=== PATIENT | male | born 1975 | race Asian ===

== ENCOUNTER 2021-11-21 08:42 | Emergency (ER) | payer BC ==
[2021-11-21] MEDS ORDERED: Sodium Chloride 0.9% 1,000 ML IV ONE (09:23)
[2021-11-21] MEDS ORDERED: metroNIDAZOLE/Normal Saline 500 MG in Premix Bag 1 BAG IV STA (09:42)
[2021-11-21] MEDS ORDERED: Ciprofloxacin in D5W 400 MG in Premix Bag 1 BAG IV STA ×2 (09:42)
[2021-11-21 10:09] LABS: CARBON DIOXIDE,CO2 24.3 mmol/L (21.0-32.0)
[2021-11-21] MEDS ORDERED: Iopamidol 755 MG/ML 500 ML Multipack Bottle IVPUSH STA (10:50)
[2021-11-21] MEDS ORDERED: Potassium Chloride 10% 20 MEQ/15 ML Soln 30 ML UD Cup PO ONE (11:18)
== END 2021-11-21 13:23 | disposition home or self-care (01) ==
LOC: MW.ED 08:42
DX: K52.9 Noninfective gastroenteritis and colitis, unspecified (principal); Z79.899 Other long term (current) drug therapy; Z90.49 Acquired absence of other specified parts of digestive tract; Z20.822 Contact with and (suspected) exposure to COVID-19
CPT/HCPCS: 36415; 74177; 80053; 83690; 83735; 85025; 87045; 87046; 87328; 87329; 87449; 87635; 87899; 96365; 96367; 99284; A9270; J0744; J3490; J7030; Q9967; U0002

== ENCOUNTER 2022-02-09 11:44 | Emergency (ER) | payer BC ==
[2022-02-09] MEDS ORDERED: Sodium Chloride 0.9% 2.5 ML Syringe FLUSH PRN (12:16)
[2022-02-09] MEDS ORDERED: Sodium Chloride 0.9% 10 ML Syringe FLUSH PRN (12:16)
[2022-02-09] MEDS ORDERED: Sodium Chloride 0.9% 1,000 ML IV ONE ×2 (12:16→13:14)
[2022-02-09 13:06] LABS: CARBON DIOXIDE,CO2 25.3 mmol/L (21.0-32.0); POTASSIUM,K 4.2 mmol/L (3.5-5.1)
[2022-02-09 13:11] LABS: CORONAVIRUS COVID-19 NAA NEGATIVE (NEGATIVE); INFLUENZA A NAA NEGATIVE (NEGATIVE); INFLUENZA B NAA NEGATIVE (NEGATIVE)
== END 2022-02-09 17:23 | disposition home or self-care (01) ==
LOC: MW.ED 11:44
DX: R53.83 Other fatigue (principal); Z20.822 Contact with and (suspected) exposure to COVID-19
CPT/HCPCS: 0240U; 36415; 71045; 80053; 81001; 83690; 85025; 96360; 96361; 99283; J3490; J7030; 99284

== ENCOUNTER 2022-02-12 11:52 | Emergency (ER) | payer BC ==
[2022-02-12] MEDS ORDERED: Sodium Chloride 0.9% 2.5 ML Syringe FLUSH PRN (11:58)
[2022-02-12] MEDS ORDERED: Sodium Chloride 0.9% 10 ML Syringe FLUSH PRN (11:58)
[2022-02-12] MEDS ORDERED: Sodium Chloride 0.9% 1,000 ML IV ONE ×2 (11:58→14:34)
[2022-02-12 13:25] LABS: ACETAMINOPHEN <2.0 ug/mL
[2022-02-12 13:26] LABS: CARBON DIOXIDE,CO2 21.8 mmol/L (21.0-32.0); POTASSIUM,K 3.6 mmol/L (3.5-5.1)
[2022-02-12] MEDS ORDERED: Ketorolac 30 MG/ML SDV IVPUSH ONE (15:41)
== END 2022-02-12 18:12 | disposition home or self-care (01) ==
LOC: MW.ED 11:52
DX: E86.0 Dehydration (principal); E87.1 Hypo-osmolality and hyponatremia; R53.83 Other fatigue; Z79.899 Other long term (current) drug therapy; Z90.49 Acquired absence of other specified parts of digestive tract
CPT/HCPCS: 36415; 70450; 71045; 80053; 80143; 80179; 80305; 81001; 83605; 84484; 85025; 86308; 87040; 87154; 96361; 96374; 99285; J1885; J3490; J7030

== ENCOUNTER 2022-02-12 23:30 | Emergency (ER) | payer BC ==
[2022-02-13] MEDS ORDERED: Cephalexin 500 MG Cap PO ONE (00:08)
[2022-02-13] MEDS ORDERED: Sodium Chloride 0.9% 1,000 ML IV STA (00:40)
[2022-02-13] MEDS ORDERED: Iopamidol 755 MG/ML 500 ML Multipack Bottle IVPUSH STA (02:16)
[2022-02-13 05:36] LABS: CARBON DIOXIDE,CO2 20.4 mmol/L (21.0-32.0); POTASSIUM,K 3.1 mmol/L (3.5-5.1)
[2022-02-13] MEDS ORDERED: cefTRIAXone 1 GM in Sodium Chloride 0.9% 50 ML IV ONE (05:42)
[2022-02-13] MEDS ORDERED: Fluconazole/Normal Saline 200 MG in Premix Bag 1 BAG IV SCH ×2 (08:00→08:15)
== END 2022-02-13 12:16 ==
LOC: MW.ED 23:30
DX: G03.9 Meningitis, unspecified (principal); R41.0 Disorientation, unspecified; Z79.899 Other long term (current) drug therapy; Z90.49 Acquired absence of other specified parts of digestive tract; Z20.822 Contact with and (suspected) exposure to COVID-19
CPT/HCPCS: 36415; 51702; 62270; 70460; 71045; 80053; 81001; 82945; 84157; 84484; 85025; 87015; 87070; 87107; 87205; 87483; 87635; 87798; 89050; 93005; 96361; 96365; 96367; 99285; J0696; J1450; J7030; Q9967; 93010; 99284; U0002

== ENCOUNTER 2022-04-07 14:10 | Emergency (ER) | payer BC ==
[2022-04-07] MEDS ORDERED: EPINEPHrine 1:10,000 1 MG/10 ML Syringe IVPUSH ONE ×3 (15:29)
[2022-04-07] MEDS ORDERED: Calcium Chloride 10% 1 GM/10 ML Syringe IVPUSH ONE (15:30)
[2022-04-07] MEDS ORDERED: Sodium Bicarbonate 8.4% 50 MEQ/50 ML Syringe IVPUSH ONE (15:31)
[2022-04-07] MEDS ORDERED: Amiodarone 150 MG in Dextrose 5% in Water 100 ML IV ONE ×4 (15:34→15:36)
== END 2022-04-07 16:32 | disposition expired ==
LOC: MW.ED 14:21
DX: I46.9 Cardiac arrest, cause unspecified (principal)
CPT/HCPCS: 92950; 96374; 96375; 99285; J0171; J0282